=== PATIENT | male | born 1970 | race Caucasian/White ===

== ENCOUNTER 2023-01-29 21:19 | Emergency (ER) | payer BC ==
[2023-01-29] MEDS ORDERED: Lidocaine 1% with EPINEPHrine 1:100,000 10 ML MDV INJECT ONE (21:42)
[2023-01-29] MEDS ORDERED: Cephalexin 250 MG Cap PO ONE ×2 (22:20→22:21)
== END 2023-01-29 22:45 | disposition home or self-care (01) ==
LOC: KA.ED 21:19
DX: S91.011A Laceration without foreign body, right ankle, initial encounter (principal); W26.8XXA Contact with other sharp object(s), not elsewhere classified, initial encounter
CPT/HCPCS: 12002; 99282; 99283; A9270-GY; J3490